=== PATIENT | female | born 1950 | race Caucasian/White ===

== ENCOUNTER 2017-05-21 18:24 | Emergency (ER) | payer MEDICARE, OTHER ==
[2017-05-21 18:30] VITALS: BP 148/89
--- NOTE | 2017-05-21 18:40 | PHYS DOC ---
Adult General Chief Complaint Chief Complaint: ANKLE PROBLEM HPI HPI Patient is a 77-year-old female who presents after twisting her right ankle. Patient is pain and immediate swelling afterwards. Patient is able to bear weight and walk on it. Patient has no other complaints Review of Systems Review of Systems Eyes: Denies injury HENT: Denies injury Cardiovascular: Denies injury GI: Denies injury Musculoskeletal: Denies back pain or joint pain. Right ankle, right proximal foot pain Integument: Denies rash or skin lesions section is mild bruising and swelling right ankle Neurologic: Denies ambulatory difficulties All other systems were reviewed and found to be within normal limits, except as documented in this note. Physical Exam Physical Exam Constitutional: Well developed, well nourished, no acute distress, non-toxic appearance. [] HENT: Normocephalic, atraumatic, Eyes: EOMI, conjunctiva normal, no discharge. [] Neck: Normal range of motion, trachea midline, no stridor. [] Cardiovascular normal perfusion Lungs & Thorax: no Tachypnea Abdomen: No distention Skin: Mild swelling and bruising right ankle and proximal foot on the lateral aspect right Back: Normal range of motion Extremities: No tenderness,ROM intact, no edema. Description above Neurologic: Alert and oriented X 3, normal motor function, ambulates in the ED with normal gait and without assistance, no focal deficits noted. [] Psychologic: Affect normal, judgement normal, mood normal. [] EKG EKG [] Radiology/Procedures Radiology/Procedures [] Course & Med Decision Making Course & Med Decision Making Pertinent Labs and Imaging studies reviewed. (See chart for details) Preliminary x-ray read shows possible acute avulsion fracture [] Dragon Disclaimer Dragon Disclaimer This electronic medical record was generated, in whole or in part, using a voice recognition dictation system. Departure Departure: Impression: Primary Impression: Ankle sprain Additional Impression: Avulsion fracture of bone Disposition: HOME, SELF-CARE Condition: STABLE Referrals: MITZY MICHELE MD Patient Instructions: Ankle Sprain, Avulsion Fracture, Cryotherapy, Heat Therapy Additional Instructions: The review of your x-ray today is a preliminary x-ray read he will be read by a radiologist in the morning. If new findings are noted U will receive a call. You may follow-up with your primary care doctor or with the orthopedic within a week Problem Qualifiers Suzi DRIVER MD May 21, 2017 18:40
--- NOTE | 2017-05-22 08:19 | RAD ---
Right foot, 3 views, 05/21/2017: History: Injury There are small cortical densities present along the dorsal aspects of the navicular bone and the anterior portion of the talus. The appearance suggests small cortical avulsion fractures of indeterminate ages. Adjacent soft tissue swelling suggests that these fractures may be recent. A small ill-defined calcific density is also present in the soft tissues along the anterolateral aspect of the calcaneus near the calcaneocuboid articulation. There is underlying cortical irregularity of the calcaneus suggesting a recent avulsion fracture. No other fracture or dislocation is identified. Right ankle, 3 views, 05/21/2017: There is cortical irregularity and spurring at the tip of medial malleolus compatible with old trauma. No additional ankle fracture or dislocation is evident. There is no significant soft tissue swelling over the malleoli. IMPRESSION: Small cortical avulsion fractures arising from the calcaneus and the navicular bone as as described above.
== END 2017-05-21 19:30 | disposition home or self-care (01) ==
LOC: ER 18:24
DX: S82.891A Other fracture of right lower leg, initial encounter for closed fracture (principal); X50.1XXA Overexertion from prolonged static or awkward postures, initial encounter; Y93.89 Activity, other specified; Y99.8 Other external cause status; Y92.89 Other specified places as the place of occurrence of the external cause
CPT/HCPCS: 73610; 73630; 99284

== ENCOUNTER → 2020-08-25 | Outpatient (CLI) | payer MEDICARE, OTHER ==
[~2020-08-25] MED LIST: HEPARIN PF 500 UNIT/5 ML DISP.SYRIN. IVP ONE
[2020-08-25 10:20] VITALS: BP 111/74
--- NOTE | 2020-08-25 10:20 | NUR ---
PT ARRIVED TO THE UNIT VIA AMBULATION ACCOMPANIED BY STAFF. PTS VS OBTAINED AND ARE STABLE. PTS PORT A CATH ACCESSED WITH 20G 3/4IN SIMMONS NEEDLE AND FLUSHED WITH 10CC NS PORT GIVES GOOD BLOOD RETURN. PORT THEN FLUSHED WITH 5CC 500U HEPARIN FLUSH. SIMMONS NEEDLE REMOVED AND BANDAGE APPLIED. PT TOLERATED PROCEDURE WELL. PT AMBULATED OFF OF UNIT AT 1035.
== END | disposition home or self-care (01) ==
LOC: OPINF 10:11
PROVIDERS: ATTEND Physician Assistant
DX: Z45.2 Encounter for adjustment and management of vascular access device (principal); C48.2 Malignant neoplasm of peritoneum, unspecified
CPT/HCPCS: 96374; 96523

== ENCOUNTER → 2020-10-06 | Outpatient (CLI) | payer MEDICARE, OTHER ==
[2020-08-25 10:20] VITALS: BP 111/74
--- NOTE | 2020-10-06 09:20 | NUR ---
Nursing Note Outpatient Pt ambulated to room 115. Pt vital signs obtained and WNL. Pt port accessed with sterile procedure. Port flushed with normal saline, good blood return. Port flushed with heparin. Pt ambulated off unit.
== END | disposition home or self-care (01) ==
LOC: OPINF 08:51
PROVIDERS: ATTEND Obstetrics & Gynecology Gynecologic Oncology
DX: Z45.2 Encounter for adjustment and management of vascular access device (principal); C48.2 Malignant neoplasm of peritoneum, unspecified
CPT/HCPCS: 96523

== ENCOUNTER 2020-10-12 15:21 | Emergency (ER) | payer MEDICARE, OTHER ==
[~2020-10-12] VITALS: Ht 170.2 cm; Wt 66.6 kg
--- NOTE | 2020-10-12 15:33 | PHYS DOC ---
Past History Past Medical History: Cancer, Hypertension Past Surgical History: Cancer Surgery, Hysterectomy Alcohol Use: Rarely Drug Use: None Adult General Chief Complaint Chief Complaint: NEURO SYMPTOMS/DEFICITS [facility] HPI Patient is a 70-year-old female presenting for right lower facial droop. Onset was first noticed yesterday evening at 6 PM. Nothing known makes better or worse. Reports without any known inciting event, trauma, exposure, or recent major changes in health experiencing numbness, tingling and eventual loss of motor or sensation of the right lower portion of the face. Reports she had difficulty eating at times and felt abnormal when brushing her teeth. Reports she woke up today and symptoms persisted. She reports ongoing symptoms this afternoon worried her and family prompting her to come in for evaluation. Outs dank of focal right lower face motor and sensory changes, patient denies any other known motor or sensory or neuro deficits. Her forehead is spared. She has not been sick recently and has been fully vaccinated against COVID-19. Review of Systems Review of Systems Fourteen body systems of review of systems have been reviewed. See HPI for pertinent positives and negative responses, other flowers all other systems are negative, non-pertinent or non-contributory Allergies Allergies Allergies Coded Allergies Type Severity Reaction Last Updated Verified No Known Drug Allergies 07/12/20 No Physical Exam Physical Exam General: Appears well, non toxic, and comfortable Skin: Warm, dry. Normal for ethnicity. HEENT: Atraumatic. PERRLA. Moist mucous membranes. Neck: Trachea midline. Normal ROM. Respiratory: Normal WOB. CTAB w/o w/r/r. No tachypnea. Cardiovascular: Regular rate and rhythm. Normal peripheral perfusion. No edema. Abdomen: Soft. Non tender. No distension. Back: Normal ROM. Musculoskeletal: No swelling or deformity. Neuro: Alert and oriented x 4. MAEE. GCS 15. Normal FNF. Negative pronator drift. Normal heel to dockery. Normal Brandin. NIH 1 due to decreased motor function of V3 on right lower face that spares forehead otherwise cranial nerves II through XII intact, normal speech. Psych: Normal affect and mood. Current Patient Data Vital Signs Vital Signs Date Time Temp Pulse Resp B/P (MAP) Pulse Ox O2 Delivery O2 Flow Rate FiO2 10/12/20 15:31 98.4 87 16 153/91 100 Room Air Vital Signs Date Time Temp Pulse Resp B/P (MAP) Pulse Ox O2 Delivery O2 Flow Rate FiO2 10/12/20 15:31 98.4 87 16 153/91 100 Room Air EKG EKG EKG ordered and interpreted by myself at 1549 hrs. as sinus rhythm at 87 bpm, unremarkable intervals, left axis deviation, no obvious ischemic findings, no STEMI Radiology/Procedures Radiology/Procedures [] Heart Score C/O Chest Pain: No HEART Score for Chest Pain: HEART Score for Chest Pain Response (Comments) Value History Slighlty/Non-Suspicious 0 ECG Normal 0 Age > 65 2 Risk Factors 1 or 2 Risk Factors 1 Troponin < Normal Limit 0 Total 3 Risk Factors: Risk Factors: DM, Current or recent (<one month) smoker, HTN, HLP, family history of CAD, obesity. Risk Scores: Risk Factors: DM, Current or recent (<one month) smoker, HTN, HLP, family history of CAD, obesity. Course & Med Decision Making Course & Med Decision Making ABCs unremarkable. I disclosed entirety of ER findings and discussed most likely diagnosis of stroke outside window of intervention versus De La Cruz's palsy. On- call neurologist contacted and case reviewed. It was recommended that patient be given choice of hospital admission for inpatient evaluation versus close outpatient follow-up following day, I disclosed this conversation with patient and she chose to follow-up the next day. As such, plan of care discussed at length with need for close outpatient follow-up to review today's ER visit stressed. Strict return precautions were also discussed at length with good understanding by patient. Patient voiced understanding and agreement with the plan. Patient knows to come back for repeat evaluation if concerning signs or symptoms present prior to outpatient follow-up. Hemodynamically stable, ambulatory and well-appearing at time of disposition. Dragon Disclaimer Dragon Disclaimer This electronic medical record was generated, in whole or in part, using a voice recognition dictation system. Departure Departure: Impression: Primary Impression: Facial droop Disposition: HOME / SELF CARE / HOMELESS Condition: STABLE Referrals: JUAN MCCAULEY DO (PCP) MICHAEL BAEZ MD Additional Instructions: You have been evaluated in the Emergency Department today for facial weakness. Your evaluation, suggests that your symptoms are most likely due to a condition called Delano Palsy but as disclosed, this might be signs of a stroke. At this point it is unclear if your symptoms will resolve with time. As disclosed, you presented to the ER outside of any window for potential intervention. Your vitals, physical examination and comprehensive ER work-up was nonconcerning for any emergent or surgical issues. I discussed your ER visit with local neurologist, Dr. Baez, and options for hospital admission versus discharge home with close outpatient follow-up were given. You chose to go home and follow-up , Dr. Baez requests that you present to his office first thing in the morning tomorrow 10/13/2020 at 0900 hrs. Return to the Emergency Department if you notice that your eyes are becoming dry and irritated, worsening or uncontrolled pain, difficulty walking or moving your arms or legs, slurred speech, difficulty with normal activities, abnormal behavior, vision changes, or for any other concerning symptoms. LOREN BOWLES DO Oct 12, 2020 15:33
--- NOTE | 2020-10-12 15:37 | RAD ---
PQRS Compliance Statement: One or more of the following individualized dose reduction techniques were utilized for this examinat ion: 1. Automated exposure control 2. Adjustment of the mA and/or kV according to patient size 3. Use of iterative reconstruction technique CT head without contrast 10/12/2020 3:25 PM INDICATION: Facial droop COMPARISON: None available TECHNIQUE: Multiple axial CT images of the head were obtained from skull base through the vertex with out intravenous contrast. FINDINGS: Head: Ventricles, sulci and basal cisterns are within normal limits. There is no hydrocephalus. Jenkins-white matter differentiation is normal. There is no acute intracranial hemorrhage. There is no mass, mass e ffect or midline shift. Posterior fossa is normal in appearance. Visualized portions of the orbits are normal. Paranasal sinuses are well aerated. Mastoid air cells a re well aerated. Scalp and calvaria are normal. IMPRESSION: No acute intracranial hemorrhage. FOR INTERNAL CODING PURPOSES Critical result: Findings discussed with Dr. Matamoros at 10/12/2020 3:33 PM. RESULT CODE: (C) Electronically signed by: Mercedez Arnold MD (10/12/2020 3:34 PM) [id number]
[2020-10-12 16:07] LABS: BASO # 0.1 x10^3/uL (0.0-0.2); BASO % 1 % (0-3); EOS # 0.1 x10^3/uL (0.0-0.7); EOS % 2 % (0-3); HEMATOCRIT 37.3 % (36.0-47.0); HEMOGLOBIN 12.8 g/dL (12.0-15.5); LYMPH # 0.7 x10^3/uL (1.0-4.8); LYMPH % 10 % (24-48); MEAN CORPUSCULAR HEMOGLOBIN 29 pg (25-35); MEAN CORPUSCULAR HGB CONC 34 g/dL (31-37); MEAN CORPUSCULAR VOLUME 85 fL (79-100); MONO # 0.8 x10^3/uL (0.0-1.1); MONO % 12 % (0-9); NEUT # 5.1 x10^3uL (1.8-7.7); NEUT % 75 % (31-73); PLATELET COUNT 185 x10^3/uL (140-400); RED BLOOD COUNT 4.38 x10^6/uL (3.50-5.40); RED CELL DISTRIBUTION WIDTH 15.5 % (11.5-14.5); WHITE BLOOD COUNT 6.7 x10^3/uL (4.0-11.0)
--- NOTE | 2020-10-12 16:12 | EKG ---
[address] [address] Test Date: 2020-10-12 Test Time: 15:43:15 Pat Name: JOSÉ MIGUEL DYE Department: Room: Gender: F [employer] Worker: ROSALIO : 1950 Requested By: LOREN BOWLES Order Number: [id number] Reading MD: Measurements Intervals [place] Rate: 87 P: 43 AK: 182 QRS: -5 QRSD: 82 T: 39 QT: 346 QTc: 422 Interpretive Statements SINUS RHYTHM VENTRICULAR PREMATURE COMPLEX(ES) LEFTWARD AXIS ABNORMAL ECG RI6.02 No previous ECG available for comparison
[2020-10-12 16:39] LABS: CALCIUM 9.3 mg/dL (8.5-10.1); CREATININE 0.8 mg/dL (0.6-1.0); GFR 70.9; POTASSIUM 4.2 mmol/L (3.5-5.1)
[2020-10-12 16:45] LABS: ALBUMIN 4.4 g/dL (3.4-5.0); ALBUMIN/GLOBULIN RATIO 1.5 (1.0-1.7); TOTAL BILIRUBIN 0.5 mg/dL (0.2-1.0); TOTAL PROTEIN 7.3 g/dL (6.4-8.2)
[2020-10-12 17:37] VITALS: BP 130/66
== END 2020-10-12 17:37 | disposition home or self-care (01) ==
LOC: ER 15:21
DX: R29.810 Facial weakness (principal); I10 Essential (primary) hypertension
CPT/HCPCS: 36415; 70450; 80053; 82947; 84484; 85025; 93005; 99285-25

== ENCOUNTER → 2020-11-17 | Outpatient (CLI) | payer MEDICARE, OTHER ==
[2020-11-17 09:13] VITALS: BP 117/68
--- NOTE | 2020-11-17 09:30 | NUR ---
pt here for outpatient port flush. pt ambulated to room, vss. port accessed per protocol using sterile procedure. port accessed, aspirated 10 ml and discarded, flushed with 10 ml ns and then heparin flush. port deaccessed, bandage applied. pt ambulated to exit.
== END | disposition home or self-care (01) ==
LOC: OPINF 08:55
PROVIDERS: ATTEND Physician Assistant
DX: Z45.2 Encounter for adjustment and management of vascular access device (principal); C48.2 Malignant neoplasm of peritoneum, unspecified; I10 Essential (primary) hypertension
CPT/HCPCS: 96523